=== PATIENT | female | born 1930 | race Caucasian/White ===

== ENCOUNTER 2017-06-11 10:55 | Observation (INO) | payer OTHER ==
[2017-06-11] VITALS (8 sets, daily range): BP systolic 114–186; BP diastolic 70–87; PULSE 80–97; RESP 16–17; TEMP 97.4–98.2; O2SAT 95–99
[~2017-06-11] VITALS: Ht 152.4 cm; Wt 58.1 kg
[2017-06-11] MEDS ORDERED: SODIUM CHLORIDE 0.9% FLUSH 10 ML FLUSH IVF PRN (11:45)
--- NOTE | 2017-06-11 11:48 | PD ---
HPI . Fall Chief Complaint: Dizziness Time Seen by Provider: 11:06 Travel History International Travel<30 days: No Contact w/Intl Traveler<30days: No Traveled to known affect area: No History of Present Illness HPI This patient presents for evaluation status post fall. She fell 4 days ago and has been lying on the floor since that time. She reports on an arthritis in her right knee and states that she fell onto the knee. She was unable to get up. When she was found today, she was assisted up and became dizzy when she stood up. She was subsequently brought here for further evaluation and treatment. Her only complaint besides dizziness his right knee pain. She denies any chest pain, shortness of breath, vomiting or diarrhea. She did urinate and defecate in her pants but was not actually incontinent. PFSH Past Medical History ?: Not Social History Tobacco Use: No Allergies-Medications (Allergen,Severity, Reaction): Coded Allergies: No Known Allergies (Unverified , 06/11/17) Reported Meds & Prescriptions Reported Meds & Active Scripts Active Reported Omeprazole 20 Mg Tab 20 Mg PO DAILY Diltiazem (Diltiazem HCl) 120 Mg Tab 120 Mg PO QID Diflunisal 500 Mg Tab 500 Mg PO BID Levothyroxine (Levothyroxine Sodium) 100 Mcg Tab 100 Mcg PO DAILY Review of Systems Except as stated in HPI: all other systems reviewed are Neg General / Constitutional: No: Fever, Chills Eyes: No: Blurred Vision HENT: Positive: Lightheadedness Cardiovascular: No: Chest Pain or Discomfort Respiratory: No: Shortness of Breath Gastrointestinal: No: Nausea, Vomiting, Diarrhea, Abdominal Pain Genitourinary: No: Urgency, Frequency, Dysuria Musculoskeletal: Positive: Arthralgias Physical Exam Narrative GENERAL: This is a very pleasant elderly woman who is lucid and acute distress. SKIN: Warm and dry. HEAD: Atraumatic. Normocephalic. EYES: Pupils equal and round. Extraocular movements are intact. ENT: No nasal bleeding or discharge. Mucous membranes pink and moist. NECK: Trachea midline. Neck is supple. CARDIOVASCULAR: Regular rate and rhythm. RESPIRATORY: No accessory muscle use. GASTROINTESTINAL: Abdomen soft, non-tender, nondistended. MUSCULOSKELETAL: She has some swelling and tenderness of the right knee. No abrasion or contusion noted. NEUROLOGICAL: Awake and alert. No obvious cranial nerve deficits. Motor grossly within normal limits. Normal speech. PSYCHIATRIC: Appropriate mood and affect; insight and judgment normal. Data Data Last Documented VS Vital Signs Date Time Temp Pulse Resp B/P (MAP) Pulse Ox O2 Delivery O2 Flow Rate FiO2 06/11/17 12:36 90 16 114/71 (85) 96 06/11/17 11:07 98.2 Orders Orders Basic Metabolic Panel (Bmp) (06/11/17 11:33) Complete Blood Count With Diff (06/11/17 11:33) Ckmb (Isoenzyme) Profile (06/11/17 11:33) Urinalysis - C+S If Indicated (06/11/17 11:33) Iv Access Insert/Monitor (06/11/17 11:33) Sodium Chloride 0.9% Flush (Ns Flush) (06/11/17 11:45) Knee, Complete (4vws) (06/11/17 11:33) CKMB (06/11/17 11:45) CKMB% (06/11/17 11:45) Sodium Chlor 0.9% 1000 Ml Inj (Ns 1000 M (06/11/17 13:15) Orthostatic Vital Signs (06/11/17 14:01) Magnesium (Mg) (06/11/17 13:59) Potassium Chloride (Kcl) (06/11/17 14:00) Orthostatic Blood Pressure (06/11/17 13:59) ^ Other Nursing Orders (06/11/17 13:59) Ns + Kcl Inj (06/11/17 14:00) ^ Fall Precautions (06/11/17 13:59) Levothyroxine (Synthroid) (06/12/17 09:00) (Nf) Omeprazole (06/12/17 09:00) Labs Laboratory Tests Test 06/11/17 11:45 White Blood Count 15.0 TH/MM3 Red Blood Count 5.66 MIL/MM3 Hemoglobin 15.2 GM/DL Hematocrit 46.7 % Mean Corpuscular Volume 82.4 FL Mean Corpuscular Hemoglobin 26.8 PG Mean Corpuscular Hemoglobin Concent 32.5 % Red Cell Distribution Width 13.5 % Platelet Count 303 TH/MM3 Mean Platelet Volume 8.1 FL Neutrophils (%) (Auto) 77.7 % Lymphocytes (%) (Auto) 11.9 % Monocytes (%) (Auto) 6.9 % Eosinophils (%) (Auto) 0.2 % Basophils (%) (Auto) 3.3 % Neutrophils # (Auto) 11.7 TH/MM3 Lymphocytes # (Auto) 1.8 TH/MM3 Monocytes # (Auto) 1.0 TH/MM3 Eosinophils # (Auto) 0.0 TH/MM3 Basophils # (Auto) 0.5 TH/MM3 CBC Comment DIFF FINAL Differential Comment Blood Urea Nitrogen 34 MG/DL Creatinine 0.96 MG/DL Random Glucose 106 MG/DL Calcium Level 8.6 MG/DL Sodium Level 141 MEQ/L Potassium Level 3.4 MEQ/L Chloride Level 107 MEQ/L Carbon Dioxide Level 21.1 MEQ/L Anion Gap 13 MEQ/L Estimat Glomerular Filtration Rate 55 ML/MIN Total Creatine Kinase 958 U/L Creatine Kinase MB 10.6 NG/ML Creatine Kinase MB % 1.1 % MDM Medical Decision Making Medical Screen Exam Complete: Yes Emergency Medical Condition: Yes Differential Diagnosis Differential diagnosis of dizziness includes but is not limited to vertigo, dehydration, acute blood loss, sepsis, ACS Differential diagnosis of extremity trauma includes but is not limited to fracture, sprain or strain, dislocation, contusion Narrative Course This patient presents for evaluation after being found down on the floor following fall 4 days ago. She will be hydrated both orally and IV. She will be evaluated for possible rhabdomyolysis. An x-ray of the knee has been ordered. Last Impressions Knee X-Ray 06/11/17 1133 Signed Impressions: Service Date/Time: May 12:10 - CONCLUSION: 1. No acute fracture or dislocation. 2. Chondrocalcinosis. 3. 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 Kenny Munoz MD The x-ray was independently viewed by me. CBC & BMP Diagram 06/11/17 11:45 Calcium Level 8.6 Total CK is 958. This patient is agreeable to admission to observation for hydration. Physician Communication Physician Communication The patient will be admitted to observation per Dr. Zamora Diagnosis Primary Impression: Rhabdomyolysis Qualified Codes: M62.82 - Rhabdomyolysis Additional Impression: Fall Qualified Codes: W19.XXXA - Unspecified fall, initial encounter Admitting Information Admitting Physician Requests: Observation Condition: Stable Katrina Zamudio MD Jun 11, 2017 11:48
[2017-06-11] MEDS ORDERED: DILT120T PO (11:50)
[2017-06-11] MEDS ORDERED: DIFL500T PO (11:50)
[2017-06-11] MEDS ORDERED: OMEP20TA PO (11:50)
[2017-06-11] MEDS ORDERED: LEVO100T5 PO (11:50)
[2017-06-11 11:54] LABS: AUTOMATED NEUTROPHIL # 11.7 TH/MM3 (1.8-7.7); BASOPHIL # 0.5 TH/MM3 (0-0.2); BASOPHIL % 3.3 % (0.0-2.0); EOSINOPHIL % 0.2 % (0.0-4.0); HEMATOCRIT 46.7 % (35.0-46.0); LYMPH % 11.9 % (9.0-44.0); LYMPHOCYTE # 1.8 TH/MM3 (1.0-4.8); MEAN CELL VOLUME 82.4 FL (80.0-100.0); MEAN CORPUSCULAR HEMOGLOBIN 26.8 PG (27.0-34.0); MEAN CORPUSCULAR HGB CONC 32.5 % (32.0-36.0); MONO % 6.9 % (0.0-8.0); NEUT % 77.7 % (16.0-70.0); PLATELET COUNT 303 TH/MM3 (150-450); RED BLOOD COUNT 5.66 MIL/MM3 (4.00-5.30); RED CELL DISTRIBUTION WIDTH 13.5 % (11.6-17.2)
[2017-06-11 11:55] LABS: HEMO FLAGS DIFF FINAL
[2017-06-11 12:02] LABS: POTASSIUM 3.4 MEQ/L (3.5-5.1)
[2017-06-11 12:06] LABS: BICARBONATE 21.1 MEQ/L (21.0-32.0)
[2017-06-11 12:29] LABS: CKMB 10.6 NG/ML (0.5-3.6)
--- NOTE | 2017-06-11 12:37 | RADRPT ---
EXAM DATE/TIME: 06/11/2017 12:10 [facility] COMPARISON: No previous studies available for comparison. INDICATIONS : Right knee pain and swelling post fall. MEDICAL HISTORY : Gastroesophageal reflux disease. Arthritis. Thyroid disease. SURGICAL HISTORY : Tonsillectomy. Appendectomy. section. ENCOUNTER: Initial ACUITY: 4 - 6 days PAIN SCORE: 6/10 LOCATION: Right knee FINDINGS: Osseous structures are intact without evidence for acute bony fracture. There is advanced degenerativ e osteoarthritis involving the medial and patellofemoral compartments with osteophyte formation. Ther e is also chondrocalcinosis. No significant joint effusion. CONCLUSION: 1. No acute fracture or dislocation. 2. Chondrocalcinosis. 3. 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 Kenny Munoz MD on June 11, 2017 at 12:34 Board Certified Radiologist. This report was verified electronically.
[2017-06-11] MEDS ORDERED: SODIUM CHLOR 0.9% 1000 ML INJ 1,000 ML IV SCH (13:15)
[2017-06-11] MEDS ORDERED: ACETAMINOPHEN 325 MG TAB PO PRN ×2 (14:15)
[2017-06-11] MEDS ORDERED: SODIUM CHLORIDE 0.9% FLUSH 10 ML FLUSH IV FLUSH PRN (14:15)
[2017-06-11] MEDS ORDERED: MAGNESIUM HYDROXIDE SUSP 30 ML CUP PO PRN (14:15)
[2017-06-11] MEDS ORDERED: SENNOSIDES 8.6 MG TAB PO PRN (14:15)
[2017-06-11] MEDS ORDERED: KETOROLAC TROMETHAMINE 30 MG/ML (IVP) VIAL IVP PRN ×2 (14:15)
[2017-06-11] MEDS ORDERED: NALOXONE HCL 0.4 MG/ML AMP IV PRN (14:15)
[2017-06-11] MEDS ORDERED: MORPHINE SULFATE 4 MG/ML INJ IV PRN (14:15)
[2017-06-11] MEDS ORDERED: LACTULOSE SYRUP 20 GM/30 ML CUP PO PRN (14:15)
[2017-06-11] MEDS ORDERED: BISACODYL 10 MG SUPP RECTAL PRN (14:15)
[2017-06-11] MEDS ORDERED: ONDANSETRON HCL 4 MG/2 ML VIAL IVP PRN (14:15)
[2017-06-11] MEDS: NS + KCL 20 MEQ INJ 1,000 ML IV SCH (14:36)
[2017-06-11] MEDS ORDERED: POTASSIUM CHLORIDE 10 MEQ CONTROLLED RELEASE TAB PO ONE (15:00)
--- NOTE | 2017-06-11 15:15 | HHI.HP ---
HPI Service [facility] Primary [facility] Physician Stevo Noguera MD Admission Diagnosis rhabdomyolisis, dehydration, fall Diagnoses: Chief Complaint: Dizziness Travel History International Travel<30 Days: No Contact w/Intl Traveler <30 Da: No Traveled to Known Affected Are: No History of Present Illness This is a 86-year-old female with a history of hypothyroidism, GERD, hypertension and right knee arthritis. States she lost her balance and fell 4 days ago and landed on her arthritic right knee. Since then she was unable to get up. Her sister from [place] contacted the local authorities who found her laying on the floor. When she stood up she became dizzy but denies loss of consciousness, nausea, headache, visual changes, numbness, focal weakness, chest pain and shortness of breath. States she did not eat and drink the whole and was screaming for help. Did urinate and defecate on herself but no incontinence. She received IV hydration in the emergency department because of mild rhabdomyolysis. States she is feeling better and was able to transfer from the stretcher to the bed without symptoms. All other systems reviewed negative Review of Systems Except as stated in HPI: all other systems reviewed are Neg Past Family Social History Past Medical History As previously mentioned Past Surgical History section Reported Medications Omeprazole 20 Mg Tab 20 Mg PO DAILY Diltiazem (Diltiazem HCl) 120 Mg Tab 120 Mg PO QID Diflunisal 500 Mg Tab 500 Mg PO BID Levothyroxine (Levothyroxine Sodium) 100 Mcg Tab 100 Mcg PO DAILY Allergies: Coded Allergies: No Known Allergies (Unverified , 06/11/17) Family History Coronary artery disease Social History Does not smoke or drink. Lives alone Physical Exam Vital Signs Vital Signs Date Time Temp Pulse Resp B/P (MAP) Pulse Ox O2 Delivery O2 Flow Rate FiO2 06/11/17 15:06 06/11/17 14:21 88 171/84 (113) 96 06/11/17 12:36 90 16 114/71 (85) 96 06/11/17 11:07 98.2 97 16 186/87 (120) 97 Physical Exam GENERAL: This is a well-nourished, well-developed patient, in no apparent distress. Looks dry SKIN: Stage I sacral decub with scab on the left gluteal HEAD: Atraumatic. Normocephalic. No temporal or scalp tenderness. EYES: Pupils equal round and reactive. Extraocular motions intact. No scleral icterus. No injection or drainage. ENT: Nose without bleeding, purulent drainage or septal hematoma. Throat without erythema, tonsillar hypertrophy or exudate. Uvula midline. Airway patent. NECK: Trachea midline. No JVD or lymphadenopathy. Supple, nontender, no meningeal signs. CARDIOVASCULAR: Regular rate and rhythm without murmurs, gallops, or rubs. RESPIRATORY: Clear to auscultation. Breath sounds equal bilaterally. No wheezes , rales, or rhonchi. GASTROINTESTINAL: Abdomen soft, non-tender, nondistended. No guarding. MUSCULOSKELETAL: Extremities without clubbing, cyanosis, or edema. No joint tenderness, effusion, or edema noted. No calf tenderness. Negative Homans sign bilaterally. NEUROLOGICAL: Awake and alert. Cranial nerves II through XII intact. Motor and sensory grossly within normal limits. Five out of 5 muscle strength in all muscle groups. Normal speech. Laboratory Laboratory Tests Test 06/11/17 11:45 White Blood Count 15.0 Red Blood Count 5.66 Hemoglobin 15.2 Hematocrit 46.7 Mean Corpuscular Volume 82.4 Mean Corpuscular Hemoglobin 26.8 Mean Corpuscular Hemoglobin Concent 32.5 Red Cell Distribution Width 13.5 Platelet Count 303 Mean Platelet Volume 8.1 Neutrophils (%) (Auto) 77.7 Lymphocytes (%) (Auto) 11.9 Monocytes (%) (Auto) 6.9 Eosinophils (%) (Auto) 0.2 Basophils (%) (Auto) 3.3 Neutrophils # (Auto) 11.7 Lymphocytes # (Auto) 1.8 Monocytes # (Auto) 1.0 Eosinophils # (Auto) 0.0 Basophils # (Auto) 0.5 CBC Comment DIFF FINAL Differential Comment Blood Urea Nitrogen 34 Creatinine 0.96 Random Glucose 106 Calcium Level 8.6 Sodium Level 141 Potassium Level 3.4 Chloride Level 107 Carbon Dioxide Level 21.1 Anion Gap 13 Estimat Glomerular Filtration Rate 55 Magnesium Level 2.2 Total Creatine Kinase 958 Creatine Kinase MB 10.6 Creatine Kinase MB % 1.1 Result Diagram: 06/11/17 1145 06/11/17 1145 Imaging EKG tracing interpreted by me from EMS shows sinus rhythm with Q waves in 3. No ST changes Last Impressions Knee X-Ray 06/11/17 1133 Signed Impressions: Service Date/Time: May 12:10 - CONCLUSION: 1. No acute fracture or dislocation. 2. Chondrocalcinosis. 3. 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 MD Marcie Michelle VTE Risk Assessment Marcie VTE Risk Assessment: Mod/High Risk (score >= 2) Caprini Risk Assessment Model Point Value = 1 Point Value = 2 Point Value = 3 Point Value = 5 Age 41-60 Minor surgery BMI > 25 kg/m2 Swollen legs Varicose veins or History of unexplained or recurrent spontaneous Oral contraceptives or hormone replacement Sepsis (< 1 month) Serious lung disease, including pneumonia (< 1 month) Abnormal pulmonary function Acute myocardial infarction Congestive heart failure (< 1 month) History of inflammatory bowel disease Medical patient at bed rest Age 61-74 Arthroscopic surgery Major open surgery (> 45 min) Laparoscopic surgery (> 45 min) Malignancy Confined to bed (> 72 hours) Immobilizing plaster cast Central venous access Age >= 75 History of VTE Family history of VTE Factor V Leiden Prothrombin [id number] Lupus anticoagulant Anticardiolipin antibodies Elevated serum homocysteine Heparin-induced thrombocytopenia Other congenital or acquired thrombophilia Stroke (< 1 month) Elective arthroplasty Hip, pelvis, or leg fracture Acute spinal cord injury (< 1 month) Prophylaxis Regimen Total Risk Factor Score Risk Level Prophylaxis Regimen 0-1 Low Early ambulation 2 Moderate Order ONE of the following: *Sequential Compression Device (SCD) *Heparin 5000 units SQ BID 3-4 Higher Order ONE of the following medications: *Heparin 5000 units SQ TID *Enoxaparin/Lovenox 40 mg SQ daily (WT < 150 kg, CrCl > 30 mL/min) *Enoxaparin/Lovenox 30 mg SQ daily (WT < 150 kg, CrCl > 10-29 mL/min) *Enoxaparin/Lovenox 30 mg SQ BID (WT < 150 kg, CrCl > 30 mL/min) AND/OR *Sequential Compression Device (SCD) 5 or more Highest Order ONE of the following medications: *Heparin 5000 units SQ TID (Preferred with Epidurals) *Enoxaparin/Lovenox 40 mg SQ daily (WT < 150 kg, CrCl > 30 mL/min) *Enoxaparin/Lovenox 30 mg SQ daily (WT < 150 kg, CrCl > 10-29 mL/min) *Enoxaparin/Lovenox 30 mg SQ BID (WT < 150 kg, CrCl > 30 mL/min) AND *Sequential Compression Device (SCD) Assessment and Plan Problem List: (1) Fall ICD Code: W19.XXXA - Unspecified fall, initial encounter Status: Acute (2) Rhabdomyolysis ICD Code: M62.82 - Rhabdomyolysis Status: Acute Assessment and Plan This is a 86-year-old female with a history of hypothyroidism, GERD, hypertension and right knee arthritis. She presents to the emergency department with dehydration and rhabdomyolysis after she lost her balance and fell 4 days ago and landed on her arthritic right knee. Dehydration. Patient received fluid bolus and we'll continue IV hydration. Hold BP meds for now Rhabdomyolysis. This is mild and continue IV hydration and repeat CK in the morning Right knee pain secondary to arthritis and contusion. Pain management, ice and physical therapy evaluation Leukocytosis likely reactive. Follow-up pending UA Decubitus. Wound care Hypokalemia. Replace with 30 meq by mouth 1 and check magnesium. Repeat BMP and magnesium in the morning DVT prophylaxis with SCD and subcutaneous heparin Discussed Condition With Patient Problem Qualifiers (1) Fall: Qualified Codes: W19.XXXA - Unspecified fall, initial encounter (2) Rhabdomyolysis: Qualified Codes: M62.82 - Rhabdomyolysis Ayush Jacobson MD Jun 11, 2017 15:15
--- NOTE | 2017-06-11 15:46 | HHI.DCPOC ---
Discharge Care Plan Diagnosis: (1) Rhabdomyolysis (2) Fall Your Health Problems Are: Difficulty with ADL Exercise Tolerance Goals to Promote Your Health * To prevent worsening of your condition and complications * To maintain your health at the optimal level Directions to Meet Your Goals Take your medications as prescribed Follow your dietary instruction Follow activity as directed Keep your appointments as scheduled Take your immunizations and boosters as scheduled If your symptoms worsen call your PCP, if no PCP go to Urgent Care Center or Emergency Room Smoking is Dangerous to Your Health. Avoid second hand smoke Call the 24-hour hour crisis hotline for domestic abuse at Ayush Jacobson MD Jun 11, 2017 15:46
--- NOTE | 2017-06-11 15:46 | HHI.FF ---
Face to Face Verification Diagnosis: (1) Fall (2) Rhabdomyolysis Physical Therapy Order: Evaluate and Treat, Improve ambulation, Strength and gait training Home Health Nursing Order: Medical education Signs/symptoms of disease process Medication education-adverse effect Nursing assessment with vital signs I have seen patient Susie Viveros on 06/11/17. My clinical findings support the need for the requested home health care services because: Deconditioned w/ increased weakness I certify that my clinical findings support that this patient is homebound because: Unsafe to leave home unassisted Ayush Jacobson MD Jun 11, 2017 15:46
[2017-06-11] MEDS: HEPARIN SODIUM - SQ 10,000 UNITS/ML VIAL SQ SCH ×2 (15:53→22:06)
[2017-06-11] MEDS: DOCUSATE SODIUM 50 MG/SENNA 8.6 MG TAB PO SCH (20:32)
[2017-06-11] MEDS: SODIUM CHLORIDE 0.9% FLUSH 10 ML FLUSH IV FLUSH SCH (20:33)
[2017-06-11] MEDS ORDERED: DIFLUNISAL 500 MG PO SCH (21:00)
[2017-06-11 21:14] LABS: BLOOD, URINE LARGE (NEG); GLUCOSE,URINE NEG (NEG); KETONE, URINE TRACE mg/dL (NEG); NITRITE,URINE NEG (NEG)
[2017-06-11 21:20] LABS: URINE COLOR YELLOW (YELLW/STRAW)
[2017-06-11 21:22] LABS: BACTERIA, URINE MOD /hpf; COMMENT (UR) CULTURE INDICATED; CULTURE IF INDICATED CULTURE INDICATED; SQUAMOUS EPITHELIAL CELL URINE 0-5 /hpf (0-5)
[2017-06-12] VITALS (9 sets, daily range): BP systolic 109–161; BP diastolic 54–93; PULSE 68–86; RESP 16–20; TEMP 96.8–99.1; O2SAT 93–97
[2017-06-12] MEDS: HEPARIN SODIUM - SQ 10,000 UNITS/ML VIAL SQ SCH ×3 (05:44→22:34)
[2017-06-12] MEDS: NS + KCL 20 MEQ INJ 1,000 ML IV SCH (05:44)
[2017-06-12] MEDS: LEVOTHYROXINE SODIUM 100 MCG TAB PO SCH (05:45)
[2017-06-12 06:55] LABS: AUTOMATED NEUTROPHIL # 6.1 TH/MM3 (1.8-7.7); BASOPHIL # 0.1 TH/MM3 (0-0.2); BASOPHIL % 0.6 % (0.0-2.0); EOSINOPHIL # 0.2 TH/MM3 (0-0.4); HEMATOCRIT 36.7 % (35.0-46.0); HEMO FLAGS DIFF FINAL; LYMPH % 20.3 % (9.0-44.0); LYMPHOCYTE # 1.9 TH/MM3 (1.0-4.8); MEAN CELL VOLUME 82.6 FL (80.0-100.0); MEAN CORPUSCULAR HEMOGLOBIN 28.5 PG (27.0-34.0); MEAN CORPUSCULAR HGB CONC 34.5 % (32.0-36.0); MONO % 9.8 % (0.0-8.0); NEUT % 67.3 % (16.0-70.0); PLATELET COUNT 213 TH/MM3 (150-450); RED BLOOD COUNT 4.45 MIL/MM3 (4.00-5.30); RED CELL DISTRIBUTION WIDTH 13.5 % (11.6-17.2); WHITE BLOOD COUNT 9.2 TH/MM3 (4.0-11.0)
[2017-06-12 07:22] LABS: POTASSIUM 3.6 MEQ/L (3.5-5.1)
[2017-06-12 07:26] LABS: BICARBONATE 24.3 MEQ/L (21.0-32.0)
[2017-06-12 08:23] LABS: CKMB 5.3 NG/ML (0.5-3.6)
[2017-06-12] MEDS: SODIUM CHLORIDE 0.9% FLUSH 10 ML FLUSH IV FLUSH SCH ×2 (09:00→21:00)
[2017-06-12] MEDS: PANTOPRAZOLE SOD 20 MG DELAYED RELEASE TAB PO SCH (09:48)
[2017-06-12] MEDS: DOCUSATE SODIUM 50 MG/SENNA 8.6 MG TAB PO SCH ×2 (09:49→21:00)
[2017-06-12] MEDS: 1/2 NS + KCL 20 MEQ INJ 1,000 ML IV SCH ×2 (10:00→11:00)
[2017-06-12] MEDS ORDERED: WALKER WHEELS/F1 MIS (10:10)
[2017-06-12] MEDS: cefTRIAXone INJ 1,000 MG in SODIUM CHLORIDE 0.9% INJ 100 ML IV SCH (11:02)
--- NOTE | 2017-06-12 11:38 | HHI.PR ---
Subjective Remarks Follow-up dehydration, rhabdomyolysis, right knee pain and UTI. Ambulated with physical therapy requiring walker. Complains of right knee pain. No UTI symptoms. Discussed with RN Objective Vitals Vital Signs Date Time Temp Pulse Resp B/P (MAP) Pulse Ox O2 Delivery O2 Flow Rate FiO2 06/12/17 08:17 94 21 06/12/17 08:02 77 20 143/54 (83) 95 06/12/17 08:00 97.1 68 20 129/74 (92) 94 139/83 (101) 06/12/17 08:00 86 06/12/17 04:00 97.1 72 16 142/70 (94) 95 06/12/17 00:00 99.1 70 16 140/71 (94) 94 160/79 (106) 161/93 (115) 06/11/17 23:53 83 06/11/17 20:20 96 21 06/11/17 20:00 97.4 85 16 151/71 (97) 97 06/11/17 16:35 98.0 80 17 160/70 (100) 95 06/11/17 16:28 99 21 06/11/17 15:06 06/11/17 14:21 88 171/84 (113) 96 06/11/17 12:36 90 16 114/71 (85) 96 I/O 06/11/17 06/11/17 06/11/17 06/12/17 06/12/17 06/12/17 07:00 15:00 23:00 07:00 15:00 23:00 Intake Total 1000 ml 543 ml 4844.1 ml 103 ml Output Total 200 ml 1 ml Balance 1000 ml 343 ml 4843.1 ml 103 ml Intake Oral 520 ml IV Total 1000 ml 543 ml 4324.1 ml 103 ml Output Urine Total 200 ml 1 ml # Voids 4 4 # Bowel Movements 1 0 Result Diagram: 06/12/1752406/12/17524 Objective Remarks Well-developed, well-nourished in no distress Pupils equally reactive to light no jaundice No JVD or bruit Equal in expansion decreased breath sounds Regular rate and rhythm Abdomen soft nontender extremities no edema no cyanosis Alert and oriented 3 nonfocal Procedures none A/P Problem List: (1) Fall ICD Code: W19.XXXA - Unspecified fall, initial encounter Status: Acute (2) Rhabdomyolysis ICD Code: M62.82 - Rhabdomyolysis Status: Acute Assessment and Plan This is a 86-year-old female with a history of hypothyroidism, GERD, hypertension and right knee arthritis. She presents to the emergency department with dehydration and rhabdomyolysis after she lost her balance and fell 4 days ago and landed on her arthritic right knee and was not able to get up for 4 days. Dehydration. Improving continue IV hydration. Rhabdomyolysis. Improving continue IV hydration and repeat CK in the morning Right knee pain secondary to arthritis and contusion. Pain management, ice and physical therapy evaluation Leukocytosis improving UTI. Start empiric Rocephin and follow culture Decubitus. Wound care Hypokalemia. Improved status post replacement Mild hypernatremia. Switch to hypotonic fluid. Repeat BMP and mag in the morning DVT prophylaxis with SCD and subcutaneous heparin Discharge Planning Possible discharge in the morning with home healthcare Problem Qualifiers (1) Fall: Qualified Codes: W19.XXXA - Unspecified fall, initial encounter (2) Rhabdomyolysis: Qualified Codes: M62.82 - Rhabdomyolysis Ayush Jacobson MD Jun 12, 2017 11:38
[2017-06-12] MEDS: DILTIAZEM HCL 60 MG TAB PO SCH ×3 (14:38→21:05)
--- NOTE | 2017-06-12 19:50 | PD.WCN.NOT ---
Wound Consult Description: Consult received from Doctor Jacobson for wound management of sacral/gluteal cleft Communicated with: LISSY Parr [facility] med-surg Recommendation: Please cleanse bilateral buttock, sacral, and gluteal cleft areas with soap and water gently.Please no scrubbing when cleaning patient. Calazime barrier cream does not have to be completely removed. Please pat dry and apply thick layer of Calazime barrier cream and leave open to air. Please continue to turn patient every 2 hours or PRN for comfort. Additional Information: Patient seen on [facility] 3rd floor for evaluation sacral/ gluteal cleft wound management. Patient stood with minimal assistance of report writer to reveal non blanchable purple discoloration to skin that is opening to R medial upper buttock,on R side of sacrum. Non blanchable purple discoloration indicates deep tissue injury. Wound measures 2cm x 2cm. Periwound presents blanchable erythema and denuded skin.Applied thick layer of Calazime barrier cream. Patient states, " I was found laying in my wet clothes 3 days after I fell".Patient positioned off bottom by LISSY Moy. Beena Yepez [facility] Jun 12, 2017 19:50
[2017-06-13] VITALS: BP 119/67; PULSE 65; RESP 16; TEMP 96.9; O2SAT 94
[2017-06-13 04:00] VITALS: BP 108/50; PULSE 65; RESP 16; TEMP 98.4; O2SAT 94
[2017-06-13] MEDS: LEVOTHYROXINE SODIUM 100 MCG TAB PO SCH (05:51)
[2017-06-13] MEDS: HEPARIN SODIUM - SQ 10,000 UNITS/ML VIAL SQ SCH ×3 (06:08→21:11)
[2017-06-13 08:00] VITALS: BP 167/77; PULSE 68; PULSE 74; RESP 21; TEMP 96.1; O2SAT 96
[2017-06-13 08:15] LABS: POTASSIUM 3.3 MEQ/L (3.5-5.1)
[2017-06-13 08:21] LABS: BICARBONATE 24.6 MEQ/L (21.0-32.0); MAGNESIUM 1.7 MG/DL (1.5-2.5)
[2017-06-13] MEDS: PANTOPRAZOLE SOD 20 MG DELAYED RELEASE TAB PO SCH (08:35)
[2017-06-13] MEDS: DOCUSATE SODIUM 50 MG/SENNA 8.6 MG TAB PO SCH ×2 (08:36→21:11)
[2017-06-13] MEDS: DILTIAZEM HCL 60 MG TAB PO SCH ×4 (08:37→21:11)
[2017-06-13 08:47] LABS: CKMB 2.5 NG/ML (0.5-3.6)
[2017-06-13] MEDS ORDERED: POTASSIUM CHLORIDE 20 MEQ CONTROLLED RELEASE TAB PO ONE (09:45)
[2017-06-13] MEDS ORDERED: WALKER WHEELS/F1 MIS (09:57)
[2017-06-13] MEDS: cefTRIAXone INJ 1,000 MG in SODIUM CHLORIDE 0.9% INJ 100 ML IV SCH (10:39)
[2017-06-13] MEDS: SODIUM CHLORIDE 0.9% FLUSH 10 ML FLUSH IV FLUSH SCH ×2 (10:40→21:11)
--- NOTE | 2017-06-13 11:54 | HHI.PR ---
Subjective Remarks Follow-up rhabdomyolysis and UTI. She is feeling better but does not want to go home because she lives alone. She would like to be discharged to rehabilitation. Discussed with RN and case management Objective Vitals Vital Signs Date Time Temp Pulse Resp B/P (MAP) Pulse Ox O2 Delivery O2 Flow Rate FiO2 06/13/17 09:37 22 06/13/17 08:00 96.1 68 21 167/77 (107) 96 06/13/17 08:00 74 06/13/17 04:00 98.4 65 16 108/50 (69) 94 06/13/17 00:00 96.9 65 16 119/67 (84) 94 06/12/17 20:40 93 21 06/12/17 20:00 70 06/12/17 20:00 97.9 75 18 134/64 (87) 97 133/71 (91) 109/78 (88) 06/12/17 18:38 99.0 71 19 116/60 (78) 96 06/12/17 12:13 96.8 76 19 160/84 (109) 96 I/O 06/12/17 06/12/17 06/12/17 06/13/17 06/13/17 06/13/17 06:59 14:59 22:59 06:59 14:59 22:59 Intake Total 4844.1 ml 103 ml 554 ml Output Total 1 ml Balance 4843.1 ml 103 ml 554 ml Intake Oral 520 ml IV Total 4324.1 ml 103 ml 554 ml Output Urine Total 1 ml # Voids 4 # Bowel Movements 0 Result Diagram: 06/12/17 0525 06/13/17 0737 Objective Remarks Well-developed, well-nourished in no distress Pupils equally reactive to light no jaundice No JVD or bruit Equal in expansion decreased breath sounds Regular rate and rhythm Abdomen soft nontender extremities no edema no cyanosis Alert and oriented 3 nonfocal Procedures none A/P Problem List: (1) Fall ICD Code: W19.XXXA - Unspecified fall, initial encounter Status: Acute (2) Rhabdomyolysis ICD Code: M62.82 - Rhabdomyolysis Status: Acute Assessment and Plan This is a 86-year-old female with a history of hypothyroidism, GERD, hypertension and right knee arthritis. She presents to the emergency department with dehydration and rhabdomyolysis after she lost her balance and fell 4 days ago and landed on her arthritic right knee and was not able to get up for 4 days. Dehydration. Improved discontinue IV hydration. Rhabdomyolysis. Improved discontinue IV hydration Right knee pain secondary to arthritis and contusion. Pain management, ice and physical therapy evaluation Leukocytosis improving Escherichia coli UTI discontinue Rocephin and start Cipro Decubitus. Wound care Hypokalemia. Improved status post replacement Mild hypernatremia. Improved status post hypotonic fluid. DVT prophylaxis with SCD and subcutaneous heparin Discharge Planning Stable for discharge to rehabilitation Problem Qualifiers (1) Fall: Qualified Codes: W19.XXXA - Unspecified fall, initial encounter (2) Rhabdomyolysis: Qualified Codes: M62.82 - Rhabdomyolysis Ayush Jacobson MD Jun 13, 2017 11:54
[2017-06-13] MEDS ORDERED: CIPR250T52 PO (11:55)
--- NOTE | 2017-06-13 11:56 | HHI.DS ---
Discharge Summary Admission Date Jun 11, 2017 at 14:05 Discharge Date: Jun 13, 2017 Admitting Diagnosis rhabdomyolisis, dehydration, fall (1) Fall ICD Code: W19.XXXA - Unspecified fall, initial encounter Diagnosis: Principal Status: Acute (2) Rhabdomyolysis ICD Code: M62.82 - Rhabdomyolysis Diagnosis: Principal Status: Acute Procedures none Brief History - From Admission This is a 86-year-old female with a history of hypothyroidism, GERD, hypertension and right knee arthritis. States she lost her balance and fell 4 days ago and landed on her arthritic right knee. Since then she was unable to get up. Her sister from [place] contacted the local authorities who found her laying on the floor. When she stood up she became dizzy but denies loss of consciousness, nausea, headache, visual changes, numbness, focal weakness, chest pain and shortness of breath. States she did not eat and drink the whole and was screaming for help. Did urinate and defecate on herself but no incontinence. She received IV hydration in the emergency department because of mild rhabdomyolysis. States she is feeling better and was able to transfer from the stretcher to the bed without symptoms. All other systems reviewed negative CBC/BMP: 06/12/17 0525 06/13/17 0737 Significant Findings Laboratory Tests Test 06/11/17 11:45 06/11/17 21:00 06/12/17 05:25 06/13/17 07:37 White Blood Count 15.0 TH/MM3 (4.0-11.0) Red Blood Count 5.66 MIL/MM3 (4.00-5.30) Hematocrit 46.7 % (35.0-46.0) Mean Corpuscular Hemoglobin 26.8 PG (27.0-34.0) Neutrophils (%) (Auto) 77.7 % (16.0-70.0) Basophils (%) (Auto) 3.3 % (0.0-2.0) Neutrophils # (Auto) 11.7 TH/MM3 (1.8-7.7) Monocytes # (Auto) 1.0 TH/MM3 (0-0.9) Basophils # (Auto) 0.5 TH/MM3 (0-0.2) Blood Urea Nitrogen 34 MG/DL (7-18) 22 MG/DL (7-18) Potassium Level 3.4 MEQ/L (3.5-5.1) 3.3 MEQ/L (3.5-5.1) Estimat Glomerular Filtration Rate 55 ML/MIN (>89) 83 ML/MIN (>89) 86 ML/MIN (>89) Total Creatine Kinase 958 U/L (26-192) 744 U/L (26-192) 312 U/L (26-192) Creatine Kinase MB 10.6 NG/ML (0.5-3.6) 5.3 NG/ML (0.5-3.6) Urine Turbidity CLOUDY (CLEAR) Urine Ketones TRACE mg/dL (NEG) Urine Occult Blood LARGE (NEG) Urine Leukocyte Esterase LARGE (NEG) Urine RBC 20-24 /hpf (0-3) Urine WBC 50-99 /hpf (0-5) Urine WBC Clumps FEW (NONE) Urine Bacteria MOD /hpf (NONE) Monocytes (%) (Auto) 9.8 % (0.0-8.0) Calcium Level 8.1 MG/DL (8.5-10.1) Sodium Level 147 MEQ/L (136-145) Chloride Level 114 MEQ/L (98-107) 112 MEQ/L (98-107) Imaging Last Impressions Knee X-Ray 06/11/17 1133 Signed Impressions: Service Date/Time: May 12:10 - CONCLUSION: 1. No acute fracture or dislocation. 2. Chondrocalcinosis. 3. 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 Kenny Munoz MD PE at Discharge Well-developed, well-nourished in no distress Pupils equally reactive to light no jaundice No JVD or bruit Equal in expansion decreased breath sounds Regular rate and rhythm Abdomen soft nontender extremities no edema no cyanosis Alert and oriented 3 nonfocal Hospital Course This is a 86-year-old female with a history of hypothyroidism, GERD, hypertension and right knee arthritis. She presents to the emergency department with dehydration and rhabdomyolysis after she lost her balance and fell 4 days prior to admission and landed on her arthritic right knee and was not able to get up for 4 days. Dehydration. Improved discontinue IV hydration. Rhabdomyolysis. Improved discontinue IV hydration Right knee pain secondary to arthritis and contusion. Pain management, ice and physical therapy evaluation. Tylenol and NSAIDs Leukocytosis improving Escherichia coli UTI. Cipro for one more day status post Rocephin Decubitus. Wound care Hypokalemia. Improved status post replacement Mild hypernatremia. Improved status post hypotonic fluid. DVT prophylaxis with SCD and subcutaneous heparin Insurance denied SNF dc with [facility] PT and VN Pt Condition on Discharge: Stable Discharge Disposition: Disch w/ Home Health Serv Discharge Time: > 30 minutes Discharge Instructions DIET: Follow Instructions for: Heart Healthy Diet Activities you can perform: Regular-No Restrictions Activities to Avoid: Driving Follow up Referrals: Appointment for Follow Up - 1 Week @ wound care PCP Follow-up - 1 Week New Medications: Walker with Front Wheels (Walker with Front Wheels) 1 Mis Mis EA .ROUTE DIRECTED, #1 0 Refills Ciprofloxacin (Cipro) 250 Mg Tab 250 MG PO Q12HR for Infection, #2 TAB for one day only 06/14 Continued Medications: Diflunisal (Diflunisal) 500 Mg Tab 500 MG PO BID for Pain Management, #60 TAB 0 Refills Diltiazem (Diltiazem) 120 Mg Tab 120 MG PO QID for Angina, #120 TAB 0 Refills Levothyroxine (Levothyroxine) 100 Mcg Tab 100 MCG PO DAILY for Thyroid, #30 TAB 0 Refills Omeprazole (Omeprazole) 20 Mg Tab 20 MG PO DAILY, #30 TAB 0 Refills Additional Information I spent 35 minutes [id number] with the patient or on the gross discussing the patient's disposition, prognosis, and plan of care with patient's caregivers. Over half the time spent was devoted to counseling the patient regarding placement in coordinating care with caregivers and case management. Ayush Jacobson MD Jun 13, 2017 11:56
[2017-06-13 12:00] VITALS: BP_SYST 126; BP_SYST 127; BP_SYST 133; BP_DIAS 53; BP_DIAS 60; BP_DIAS 69; PULSE 70; RESP 20; TEMP 95.8; O2SAT 95
[2017-06-13 16:00] VITALS: BP 128/62; PULSE 68; RESP 20; TEMP 96.2; O2SAT 95
[2017-06-13 20:00] VITALS: BP 136/69; PULSE 68; PULSE 69; RESP 20; TEMP 96.8; O2SAT 95; O2SAT 96
[2017-06-14] VITALS: BP 97/53; PULSE 59; RESP 20; TEMP 97.5; O2SAT 95
[2017-06-14 04:00] VITALS: BP 126/63; PULSE 66; RESP 20; TEMP 96.2; O2SAT 95
[2017-06-14] MEDS: HEPARIN SODIUM - SQ 10,000 UNITS/ML VIAL SQ SCH (06:09)
[2017-06-14] MEDS: LEVOTHYROXINE SODIUM 100 MCG TAB PO SCH (06:09)
[2017-06-14 08:00] VITALS: BP 146/66; PULSE 66; RESP 20; TEMP 96.1; O2SAT 95; O2SAT 96
[2017-06-14 08:02] VITALS: BP 122/67; PULSE 68; O2SAT 94
[2017-06-14 08:04] VITALS: BP 127/73; PULSE 69; O2SAT 96
[2017-06-14] MEDS ORDERED: CIPROFLOXACIN 250 MG TAB PO SCH (09:00)
[2017-06-14] MEDS: PANTOPRAZOLE SOD 20 MG DELAYED RELEASE TAB PO SCH (09:08)
[2017-06-14] MEDS: SODIUM CHLORIDE 0.9% FLUSH 10 ML FLUSH IV FLUSH SCH (09:08)
[2017-06-14] MEDS: DILTIAZEM HCL 60 MG TAB PO SCH (09:08)
[2017-06-14] MEDS: DOCUSATE SODIUM 50 MG/SENNA 8.6 MG TAB PO SCH (09:08)
[2017-06-14] MEDS ORDERED: IBUPROFEN 600 MG TAB PO PRN (10:00)
[2017-06-14] MEDS ORDERED: IBUPROFEN 400 MG TAB PO PRN (10:00)
--- NOTE | 2017-06-14 11:29 | HHI.PR ---
Subjective Remarks Follow-up UTI and rhabdomyolysis. She is doing okay wants to go to rehabilitation. Requesting pain medicine stronger than Tylenol. Discussed with RN Objective Vitals Vital Signs Date Time Temp Pulse Resp B/P (MAP) Pulse Ox O2 Delivery O2 Flow Rate FiO2 06/14/17 08:04 69 127/73 (91) 96 06/14/17 08:02 68 122/67 (85) 94 06/14/17 08:00 96.1 66 20 146/66 (92) 95 06/14/17 08:00 96 21 06/14/17 04:00 96.2 66 20 126/63 (84) 95 06/14/17 00:00 97.5 59 20 97/53 (68) 95 06/13/17 20:00 68 06/13/17 20:00 95 21 06/13/17 20:00 96.8 69 20 136/69 (91) 96 06/13/17 16:00 96.2 68 20 128/62 (84) 95 06/13/17 12:00 95.8 70 20 133/69 (90) 95 06/13/17 12:00 126/53 (77) 06/13/17 12:00 127/60 (82) 06/13/17 11:38 20 I/O 06/13/17 06/13/17 06/13/17 06/14/17 06/14/17 06/14/17 07:00 15:00 23:00 07:00 15:00 23:00 Intake Total 554 ml 200 ml 120 ml Output Total 1 ml Balance 554 ml 200 ml 120 ml -1 ml Intake Oral 200 ml 120 ml IV Total 554 ml Output Urine Total 1 ml # Voids 4 # Bowel Movements 0 Result Diagram: 06/12/17 0525 06/13/17 0737 Objective Remarks Well-developed, well-nourished in no distress Pupils equally reactive to light no jaundice No JVD or bruit Equal in expansion decreased breath sounds Regular rate and rhythm Abdomen soft nontender extremities no edema no cyanosis Alert and oriented 3 nonfocal Procedures none A/P Problem List: (1) Fall ICD Code: W19.XXXA - Unspecified fall, initial encounter Status: Acute (2) Rhabdomyolysis ICD Code: M62.82 - Rhabdomyolysis Status: Acute Assessment and Plan This is a 86-year-old female with a history of hypothyroidism, GERD, hypertension and right knee arthritis. She presents to the emergency department with dehydration and rhabdomyolysis after she lost her balance and fell 4 days prior to admission and landed on her arthritic right knee and was not able to get up for 4 days. Dehydration. Improved discontinue IV hydration. Rhabdomyolysis. Improved discontinue IV hydration Right knee pain secondary to arthritis and contusion. Pain management, ice and physical therapy evaluation. Tylenol and NSAIDs Leukocytosis improving Escherichia coli UTI. Cipro for one more day status post Rocephin Decubitus. Wound care Hypokalemia. Improved status post replacement Mild hypernatremia. Improved status post hypotonic fluid. DVT prophylaxis with SCD and subcutaneous heparin Discharge Planning Stable for discharge to rehabilitation Problem Qualifiers (1) Fall: Qualified Codes: W19.XXXA - Unspecified fall, initial encounter (2) Rhabdomyolysis: Qualified Codes: M62.82 - Rhabdomyolysis Ayush Jacobson MD Jun 14, 2017 11:29
[2017-06-14 12:00] VITALS: BP 132/62; PULSE 68; RESP 20; TEMP 96.6; O2SAT 95
== END 2017-06-14 13:18 | disposition home health service (06) ==
LOC: PHED 10:55 → PHEDA 14:05 → PH3B 14:59
PROVIDERS: ADMIT Internal Medicine; ATTEND Internal Medicine
DX: M62.82 Rhabdomyolysis (principal); E86.0 Dehydration; N39.0 Urinary tract infection, site not specified; B96.20 Unspecified Escherichia coli [E. coli] as the cause of diseases classified elsewhere; S80.01XA Contusion of right knee, initial encounter; M17.11 Unilateral primary osteoarthritis, right knee; M11.261 Other chondrocalcinosis, right knee; E87.6 Hypokalemia; E87.0 Hyperosmolality and hypernatremia; E03.9 Hypothyroidism, unspecified; K21.9 Gastro-esophageal reflux disease without esophagitis; W01.0XXA Fall on same level from slipping, tripping and stumbling without subsequent striking against object, initial encounter
CPT/HCPCS: 73564; 80048; 81001; 82550; 82552; 83735; 85025; 87077; 87086; 87186; 96361; 96365; 96366; 96372; 96375; 96376; 97163; 99285; G0378; G8987; G8988; J0696; J1644; J1885; J3480; J7030